=== PATIENT | female | born 2000 | race Caucasian/White ===

== ENCOUNTER 2025-02-09 10:51 | Outpatient (CLI) | payer MEDICAID, SELFPAY ==
--- NOTE | ~2025-02-09 | US_ITS ---
EXAMINATION: US OB follow up DATE: 02/09/2025 11:27 INDICATION: Encounter for supervision of normal during third trimester with estimated size greater than expected for estimated gestational age TECHNIQUE: Real-time ultrasound of the pelvis was performed. The interpreting radiologist was not pre sent for the study. COMPARISON: None. FINDINGS: There is a single living fetus in vertex presentation. The placenta is anterior and not low-lying. F etal heart rate is 135 beats per minute (bpm). The amniotic fluid index is 9.1 cm, which is normal. (5th%-95%: 7.7-24.9 cm at 36 weeks estimated gestational age). The following biometric data were obtained: BPD: 9.2 cm -> 37 weeks 3 days Head circumference: 33.3 cm -> 38 weeks 0 days Abdominal circumference: 33.6 cm -> 37 weeks 3 days Femur length: 7.3 cm -> 37 weeks 3 days These measurements are concordant. Head circumference to abdominal circumference ratio: 0.99 (normal range 0.91-1.05). Estimated weight: 3231 g (+/-) 485 g or 7 lbs. 2 oz. (+/-) 1lb. 1 oz. IMPRESSION: 1. Single living fetus in vertex presentation with heart rate of 135 bpm. 2. Gestational age by ultrasound of 37 weeks 4 day(s) +/- 2 week(s) 4 day(s) with ultrasound estimate d date of delivery (SURINDER) of 02/26/2025. Estimated weight is 84th percentile by Hadlock criteria when 03/07/2025 is used as the SURINDER. Please correlate with clinical information or earlier ultrasounds f or most accurate SURINDER. 3. Normal amniotic fluid index of 9.1 cm. Reviewed, dictated and finalized at location A. IMPRESSION: 1. Single living fetus in vertex presentation with heart rate of 135 bpm. 2. Gestational age by ultrasound of 37 weeks 4 day(s) +/- 2 week(s) 4 day(s) wi th ultrasound estimated date of delivery (SURINDER) of 02/26/2025. Estimated we ight is 84th percentile by Hadlock criteria when 03/07/2025 is used as the SURINDER. P lease correlate with clinical information or earlier ultrasounds for most accur ate SURINDER. 3. Normal amniotic fluid index of 9.1 cm.
== END 2025-02-09 10:52 | disposition home or self-care (01) ==
PROVIDERS: PCP Obstetrics & Gynecology; Visit Provider Obstetrics & Gynecology
DX: Z34.90 Encounter for supervision of normal pregnancy, unspecified, unspecified trimester (principal)
CPT/HCPCS: 76816

== ENCOUNTER 2025-02-26 20:31 | Observation (INO) | payer MEDICAID, SELFPAY ==
--- OUTSIDE RECORDS SUMMARY | 2025-02-26 22:22 | XMS_ITS | Clinical Summary ---
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 Gender Identity Not on file Sexual Orientation Not on file Plan of Treatment Health Maintenance Due Date Last Done Comments Cervical Cancer Screening Pap Smear (Age 21 to 29) Every 3 Years 1999 Cervical Cancer Screening 1999 Annual Physical 11/14/2002 HPV Vaccines (1 - 3-dose series) 11/14/2014 Hepatitis C 11/14/2017 DTaP, Tdap and Td Vaccines (7 - Td or Tdap) 04/23/2023 04/23/2013, 11/24/2003, 11/24/2003, Additional history exists COVID-19 Vaccine ( season) 2024 Hepatitis B Vaccines Completed 12/05/2000, 03/07/2000, 01/11/2000 Meningococcal Vaccine Completed 03/01/2016, 014 Meningococcal B Vaccine Aged Out No l onger eligible based on patient's age to complete this topic Pneumococcal Vaccine: Pediatrics (0 to 5 Years) and At-Risk Patients (6 to 49 Years) Aged Out No longer eligible based on patient's age to complete this topic RSV Immunizations Under 20 Months Aged Out No longer eligible based on patient's age to complete this topic Insurance [facility] Care Teams Track Inspector Relationship Specialty Start Date End Date Fortunato Lowe MD [address] [place] [address] PCP - General INTERNAL MEDICINE 06/25/24
--- OUTSIDE RECORDS SUMMARY | 2025-02-26 22:22 | XMS_ITS | Clinical Summary ---
Author Organization [facility] Address [address] [place] [address] Care Team Providers Care Shear Helper Name Role Phone Fortunato Lowe MD Primary Care Provider [phone] Source Comments [facility],non-owned Affiliates and Associated Physician Practices is amultiple site organization consisting of ambulatory clinics and hospital sitesin [place], [place], [place] and [place]. This disclosure is being madepursuant to the Care Everywhere program and may not contain all information available regarding this patient. Last updated 18.[facility] Active Problems Problem Noted Date Diagnosed Date Recurrent loss, currently Social History Tobacco Use Types Packs/Day Years Used Date Smoking Tobacco: Never Assessed PHQ-2 Answer Date Recorded Patient Health Questionnaire-2 Score 0 08/04/2024 Comments Unknown Sex and Gender Information Value Date Recorded Sex Assigned at Female 06/23/2024 4:24 PM PUBLIC TRANSIT SPECIALIST Legal Sex Female 3:55 PM PUBLIC TRANSIT SPECIALIST Gender Identity Female 06/23/2024 4:24 PM PUBLIC TRANSIT SPECIALIST Sexual Orientation Straight 06/23/2024 4: 28 PM PUBLIC TRANSIT SPECIALIST Plan of Treatment Health Maintenance Due Date Last Done Comments HIV SCREENING 11/14/2014 HPV VACCINE (1 - 3-dose series) 11/14/2014 CHLAMYDIA/GONORRHEA SCREENING 2015 HEPATITIS C SCREENING 11/10/2017 DTAP/TDAP/TD VACCINES (1 - Tdap) 11/14/2018 HEPATITIS B VACCINE (1 of 3 - 19+ 3-dose series) 11/14/2018 PAP SMEAR 11/14/2020 COVID-19 VACCINE ( season) 2024 INFLUENZA VACCINE (#1) 2025 5, 05/20/2014, 04/23/2013, Additional history exists ZOSTER VACCINE (1 of 2) 11/14/2049 DEPRESSION SCREENING Completed 08/11/2024 HIB VACCINE Aged Out No longer eligi ble based on patient's age to complete this topic MENINGOCOCCAL (Group B) VACCINE SHARED DECISION-MAKING Aged Out No longer eligible based on patient's age to complete this topic MENINGOCOCCAL GROUPS A/C/Y/W VACCINE Aged Out No longer eligible based on patient's age to complete this topic PNEUMOCOCCAL VACCINE Aged Out No long er eligible based on patient's age to complete this topic Insurance Care Teams Shear Helper Relationship Specialty Start Date End Date Fortunato Lowe MD [address] [place], [place] [id number] PCP - General Internal Medicine 08/11/24
[2025-02-26 22:41] VITALS: BMI 39.9
--- NOTE | 2025-02-26 22:41 | OBADM ---
This patient, Radha Contreras, admitted to the OB room Labor/Delivery/Recovery 105 for observation. Patient/family oriented to hospital policies and general routines including ID bracelet, bed and alarms, visiting hours, pain management, procedures, bathroom and other care routines, personal items, smoking policy, room service/diet, and visiting hours. Patient/Family are encouraged to report perceived risks to care and to ask questions if they do not understand what they are told or what they should do.
--- NOTE | 2025-02-27 10:54 | PM.OBTRLD ---
OB - Triage/Final Diagnosis Visit Information Comments/Additional reasons for admission: I have assessed the risk for this patient, Radha Contreras, and determined that she would benefit from observation care. Evaluation Vital signs: Vital Signs - 24 hr 02/26/25 22:41 Oxygen Delivery Room Air Final Diagnosis (1) Irregular uterine contractions: Code(s): O47.9 - False labor, unspecified Status: Acute
== END 2025-02-26 22:56 | disposition home or self-care (01) ==
PROVIDERS: Admitting Provider Obstetrics & Gynecology; PCP Internal Medicine; Visit Provider Obstetrics & Gynecology
DX: O47.1 False labor at or after 37 completed weeks of gestation (principal); Z3A.38 38 weeks gestation of pregnancy
CPT/HCPCS: G0378; G0379

== ENCOUNTER 2025-03-01 02:25 | Inpatient (IN) | payer OTHER, SELFPAY ==
[2025-03-01] VITALS (334 sets, daily range): BP systolic 83–142; BP diastolic 44–118; PULSE 25–148; RESP 16–19; TEMP 36.7–37.7; O2SAT 73–100; BMI 39.9
--- OUTSIDE RECORDS SUMMARY | 2025-03-01 02:48 | XMS_ITS | Clinical Summary ---
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
--- OUTSIDE RECORDS SUMMARY | 2025-03-01 02:48 | XMS_ITS | Clinical Summary ---
Author Organization [facility] Address [address] [place] [address] Care Team Providers Care Utilization Review Specialist Name Role Phone Fortunato Lowe MD Primary Care Provider [phone] Source Comments [facility],non-owned Affiliates and Associated Physician Practices is amultiple site organization consisting of ambulatory clinics and hospital sitesin [place], [place], [place] and [place]. This disclosure is being madepursuant to the Care Everywhere program and may not contain all information available regarding this patient. Last updated 18.[facility] Active Problems Problem Noted Date Diagnosed Date Recurrent loss, currently Social History Tobacco Use Types Packs/Day Years Used Date Smoking Tobacco: Never Assessed PHQ-2 Answer Date Recorded Patient Health Questionnaire-2 Score 0 08/04/2024 Comments Unknown Sex and Gender Information Value Date Recorded Sex Assigned at Female 06/23/2024 4:24 PM ACCOUNT CONSULTANT Legal Sex Female 3:55 PM ACCOUNT CONSULTANT Gender Identity Female 06/23/2024 4:24 PM ACCOUNT CONSULTANT Sexual Orientation Straight 06/23/2024 4: 28 PM ACCOUNT CONSULTANT Plan of Treatment Health Maintenance Due Date [...] to complete this topic Insurance Care Teams Utilization Review Specialist Relationship Specialty Start Date End Date Fortunato Lowe MD [address] [place], [place] [phone] PCP - General Internal Medicine 08/11/24
--- NOTE | 2025-03-01 03:02 | LDADM ---
This patient, Radha Contreras, was admitted to Labor/Delivery/Recovery 107 on 03/01/25 at 02:25. Plans for labor, pain management and were discussed with patient. Patient/family oriented to hospital policies and general routines including ID bracelet, bed and alarms, visiting hours, pain management, procedures, bathroom and other care routines, personal items, smoking policy, room service/diet and guest tray routines, infant security routines, and visiting hours. Patient/Family are encouraged to report perceived risks to care and to ask questions if they do not understand what they are told or what they should do. See OBIX for further documentation.
[2025-03-01 03:03] LABS: Hematocrit 37.7 % (37.0-47.0); Hemoglobin 11.9 g/dL (12.0-15.0); Immature Granulocyte Percent A 0.8 % (0-0.5); Lymphocytes Absolute Auto 2.37 K/mm3 (0.9-3.2); Mean Corpuscular HGB Conc 31.6 g/dl (32-36); Mean Corpuscular Hemoglobin 27.2 pg (26-34); Mean Corpuscular Volume 86.1 fl (80-100); Nucleated Red Blood Cells Absolute Auto 0.000 K/mm3 (0.0-0.012); Nucleated Red Blood Cells Perc 0.0 % (0.0-0.2); Platelet Count Result 161 k/mm3 (150-375); Red Blood Count 4.38 M/mm3 (4.2-5.4); White Blood Count 14.6 K/mm3 (4.5-10.0)
--- NOTE | 2025-03-01 03:34 | P.PNAN_ITS ---
Anes - Eval Pre Procedure Procedure: Labor epidural Date/Time: 03/01/25 03:34 Surgeon: man Preop Diagnosis: pain during labor Pre Op Diagnosis: Labor Patient Data Age: 24 Gender: F Height: 1.57 m Weight: 99 kg Last Vital Signs Pulse 94 03/01/25 03:31 BP 125/84 03/01/25 03:31 Allergies Allergy/AdvReac Type Severity Reaction Status Date / Time Penicillins Allergy Mild Unknown Verified 02/23/25 12:00 Home Medications ?Medication ?Instructions ?Recorded ?Confirmed ?Type docosahexaenoic acid 200 mg mg PO 01/27/25 02/23/25 History capsule ( DHA) ferrous sulfate 300 mg (60 mg 300 mg PO DAILY 01/27/25 02/23/25 History iron)/5 mL oral liquid valacyclovir 500 mg tablet 500 mg PO DAILY 02/05/25 02/23/25 History Laboratory Tests 03/01/25 02:58 WBC 14.6 H K/mm3 (4.5-10.0) RBC 4.38 M/mm3 (4.2-5.4) Hgb 11.9 L g/dL (12.0-15.0) Hct 37.7 % (37.0-47.0) MCV 86.1 fl (80-100) MCH 27.2 pg (26-34) MCHC 31.6 L g/dl (32-36) RDW 20.3 H % (11.5-14.5) Plt Count 161 k/mm3 (150-375) MPV 10.9 H fl (7.4-10.4) Immature Gran % (Auto) 0.8 H % (0-0.5) Neut % (Auto) 75.5 H % (45.5-73.1) Lymph % (Auto) 16.3 L % (18.3-44.2) [place] % (Auto) 6.7 % (2.6-8.5) Eos % (Auto) 0.5 % (0-4.4) Baso % (Auto) 0.2 % (0.2-1.2) Lymph # (Auto) 2.37 K/mm3 (0.9-3.2) [place] # (Auto) 1.0 H K/mm3 (0.1-0.6) Eos # (Auto) 0.1 K/mm3 (0-0.3) Baso # (Auto) 0.0 K/mm3 (0.0-0.1) Abs Immat Gran (auto) 0.11 H K/mm3 (0.00-0.031) Absolute Neuts (auto) 11.0 H K/mm3 (1.3-6.7) Absolute Nucleated RBC 0.000 K/mm3 (0.0-0.012) Nucleated RBC % 0.0 % (0.0-0.2) Blood Type Pending Antibody Screen Pending Patient hx anesthesia problems: none Family hx anesthesia problems: none Results Review: All pre-operative results and documents have been reviewed as part of the pre- operative evaluation. [facility] Past Medical History Medical History (Updated 03/01/25 @ 03:36 by Sonia Clay CRNA) Obesity IUP (intrauterine ), incidental Family History Family History Grandparent Breast cancer Social History Social History Smoking status: Former smoker Tobacco type: e-cigarettes/vaping Second hand tobacco smoke exposure: No Alcohol intake: former Substance use: never Do You Feel Safe in your Home?: Yes Lack of Transportation: No Lack of Food: Never True Current Housing: I Have Housing Concerned About Future Housing: No Difficulty Paying Gas/Electric Bills: No Difficulty Paying for Meds: No Currently Unemployed: No Education: High School Diploma/GED Difficulty w/ Childcare or Family Care: No Living arrangements: with family Gender identity (if verbalized by the patient): Female Spiritual care concerns: No Exam Day of Procedure 03/01/25 03:34
[2025-03-01 04:04] LABS: Syphilis IgG/IgM Antibody Non-Reactive (Nonreactive)
[2025-03-01] MEDS: LACTATED RINGERS 1,000 ML 125 ML IV CONT ×3 (07:39→19:50)
--- NOTE | 2025-03-01 07:51 | P.HP_ITS ---
H&P: HPI History of Present Illness Date/Time: 03/01/25 07:51 Chief Complaint: Contractions Narrative: 24 y/o at 39 1/7 weeks gestation by LMP consistent with ultrasound exams at 5 and 10 weeks. She presented with contractions. Labor was diagnosed. She is now comfortable with epidural. GBS neg. Rubella equivocal. Former smoker - has quit! NIPT low risk, carrier screen negative. GCT normal at 112. Review of Systems Review of Systems: All systems reviewed & are unremarkable except as noted in HPI and below [facility] Past Medical History Medical History Obesity IUP (intrauterine ), incidental Family History Family History Grandparent Breast cancer Social History Social History Smoking status: Former smoker Tobacco type: e-cigarettes/vaping Second hand tobacco smoke exposure: No Alcohol intake: former Substance use: never Do You Feel Safe in your Home?: Yes Lack of Transportation: No Lack of Food: Never True Current Housing: I Have Housing Concerned About Future Housing: No Difficulty Paying Gas/Electric Bills: No Difficulty Paying for Meds: No Currently Unemployed: No Education: High School Diploma/GED Difficulty w/ Childcare or Family Care: No Living arrangements: with family Gender identity (if verbalized by the patient): Female Spiritual care concerns: No Meds Home Medications and Allergies Home Medications ?Medication ?Instructions ?Recorded ?Confirmed ?Type docosahexaenoic acid 200 mg mg PO 01/27/25 02/23/25 History capsule ( DHA) ferrous sulfate 300 mg (60 mg 300 mg PO DAILY 01/27/25 02/23/25 History iron)/5 mL oral liquid valacyclovir 500 mg tablet 500 mg PO DAILY 02/05/25 02/23/25 History Allergies Allergy/AdvReac Type Severity Reaction Status Date / Time Penicillins Allergy Mild Unknown Verified 02/23/25 12:00 Vital Signs Vital Signs - 24 hr 03/01/25 01:00 03/01/25 03:31 03/01/25 03:41 Temperature 98.7 F Pulse Rate 94 Blood Pressure 125/84 Pulse Oximetry 100 03/01/25 03:42 03/01/25 03:43 03/01/25 03:46 Temperature Pulse Rate 126 H 121 H 122 H Blood Pressure 133/93 H 122/86 133/79 Pulse Oximetry 100 03/01/25 03:48 03/01/25 03:51 03/01/25 03:53 Temperature Pulse Rate 110 H 104 H 122 H Blood Pressure 142/75 H 133/70 92/66 L Pulse Oximetry 100 03/01/25 03:55 03/01/25 03:56 03/01/25 03:58 Temperature Pulse Rate 95 103 H Blood Pressure 123/79 123/71 Pulse Oximetry 100 03/01/25 04:01 03/01/25 04:03 03/01/25 04:06 Temperature Pulse Rate 104 H 97 97 Blood Pressure 119/70 125/75 130/72 Pulse Oximetry 100 100 03/01/25 04:08 03/01/25 04:11 03/01/25 04:13 Temperature Pulse Rate 107 H 102 H 100 Blood Pressure 132/77 132/73 135/71 Pulse Oximetry 100 03/01/25 04:16 03/01/25 04:18 03/01/25 04:21 Temperature Pulse Rate 110 H 106 H Blood Pressure 121/84 138/87 Pulse Oximetry 100 100 03/01/25 04:22 03/01/25 04:25 03/01/25 04:30 Temperature Pulse Rate Blood Pressure Pulse Oximetry 100 100 100 03/01/25 04:31 03/01/25 04:35 03/01/25 04:40 Temperature Pulse Rate 102 H Blood Pressure 123/77 Pulse Oximetry 100 100 03/01/25 04:44 03/01/25 04:46 03/01/25 04:49 Temperature Pulse Rate 97 Blood Pressure 107/57 L Pulse Oximetry 100 100 03/01/25 04:50 03/01/25 04:51 03/01/25 04:51 Temperature Pulse Rate Blood Pressure Pulse Oximetry 99 100 97 03/01/25 04:56 03/01/25 05:01 03/01/25 05:06 Temperature Pulse Rate 100 Blood Pressure 107/62 Pulse Oximetry 100 100 100 03/01/25 05:11 03/01/25 05:16 03/01/25 05:21 Temperature Pulse Rate 96 Blood Pressure 104/67 Pulse Oximetry 99 100 100 03/01/25 05:26 03/01/25 05:31 03/01/25 05:36 Temperature Pulse Rate 94 Blood Pressure 106/68 Pulse Oximetry 100 100 100 03/01/25 05:41 03/01/25 05:42 03/01/25 05:43 Temperature Pulse Rate Blood Pressure Pulse Oximetry 99 100 100 03/01/25 05:43 03/01/25 05:43 03/01/25 05:43 Temperature Pulse Rate Blood Pressure Pulse Oximetry 99 99 100 03/01/25 05:44 03/01/25 05:46 03/01/25 05:49 Temperature Pulse Rate 97 Blood Pressure 124/77 Pulse Oximetry 98 100 03/01/25 05:50 03/01/25 05:54 03/01/25 05:59 Temperature 99.1 F Pulse Rate Blood Pressure Pulse Oximetry 99 99 03/01/25 06:01 03/01/25 06:04 03/01/25 06:09 Temperature Pulse Rate 79 Blood Pressure 115/64 Pulse Oximetry 98 100 03/01/25 06:14 03/01/25 06:14 03/01/25 06:16 Temperature Pulse Rate 88 Blood Pressure 117/71 Pulse Oximetry 100 100 03/01/25 06:19 03/01/25 06:24 03/01/25 06:29 Temperature Pulse Rate Blood Pressure Pulse Oximetry 100 100 100 03/01/25 06:31 03/01/25 06:34 03/01/25 06:39 Temperature Pulse Rate 99 Blood Pressure 117/74 Pulse Oximetry 100 100 03/01/25 06:44 03/01/25 06:46 03/01/25 06:49 Temperature Pulse Rate 103 H Blood Pressure 113/76 Pulse Oximetry 100 100 03/01/25 06:54 03/01/25 06:59 03/01/25 07:01 Temperature Pulse Rate 86 Blood Pressure 118/72 Pulse Oximetry 100 99 03/01/25 07:04 03/01/25 07:09 03/01/25 07:14 Temperature Pulse Rate Blood Pressure Pulse Oximetry 100 100 100 03/01/25 07:16 03/01/25 07:19 03/01/25 07:24 Temperature Pulse Rate 85 Blood Pressure 113/63 Pulse Oximetry 99 99 03/01/25 07:29 03/01/25 07:31 03/01/25 07:34 Temperature Pulse Rate 100 Blood Pressure 134/67 Pulse Oximetry 99 100 03/01/25 07:39 03/01/25 07:44 03/01/25 07:46 Temperature Pulse Rate 100 Blood Pressure 124/77 Pulse Oximetry 98 98 03/01/25 07:49 Temperature Pulse Rate Blood Pressure Pulse Oximetry 98 Exam Const: Orientation/consciousness: patient oriented x3 Other: Well-developed, well-nourished female in no acute distress. Neck: Thyroid: thyroid normal Lymphatic: no lymphadenopathy noted (in neck, axilla or inguinal nodes) Resp: Effort & Inspection: normal respiratory effort Auscultation: clear to auscultation bilaterally Cardio: Rate: regular rate Rhythm: regular rhythm Heart sounds: S1 normal heart sound present and S2 normal heart sound present GI: Other: ABD: Soft, nontender, nondistended, gravid. NST reactive. TOCO: contractions every 4-5 min. No guarding or rebound tenderness. No hepatosplenomegaly. : General: Yes no CVA tenderness Other: Cervix 6/50/-2. AROM with clear fluid. IUPC placed. Vertex. Back/Spine/Pelvis: Back: no CVA tenderness Skin: General skin exam: normal color and no rashes or lesions noted Neuro: General: patient oriented x3 Extrem: Other: Extremities: nontender with no edema Psych: Mental Status: mental status grossly normal Affect: normal affect H&P: Results Labs Labs: Short CBC 03/01/25 Range/Units 02:58 WBC 14.6 H (4.5-10.0) K/mm3 Hgb 11.9 L (12.0-15.0) g/dL Hct 37.7 (37.0-47.0) % Plt Count 161 (150-375) k/mm3 Assessment and Plan Assessment and plan (1) Active labor at term: Status: Acute Assessment and Plan: A: IUP at 39 1/7 weeks, in labor. P: Anticipate . Augment labor as needed.
[2025-03-01] MEDS: ACETAMINOPHEN 500 MG TABLET 1000 MG PO (19:49)
[2025-03-01] MEDS: FAMOTIDINE 20 MG/2 ML VIAL IV PUSH (19:49)
[2025-03-01] MEDS: ONDANSETRON INJ 4 MG/2 ML VIAL IV PUSH (19:50)
[2025-03-01] MEDS: AZITHROMYCIN IV 500 MG in SODIUM CHLORIDE 0.9% IV 250 ML IVPB (19:51)
[2025-03-01] MEDS: ceFAZolin 2 GM in SODIUM CHLORIDE 0.9% IV 50 ML 100 ML IVPB (19:51)
--- NOTE | 2025-03-01 21:41 | PM.OBPNLAB ---
Pain Control Date/time seen: 03/01/25 21:41 Comfortable with epidural. AVSS (Tm 100F) NST good variability TOCO: contractions every 2-3 min ABD soft, nontender, gravid EXT nontender Cervix 8100/-1. A: Arrest of dilation in labor. P: Offered primary . Reviewed risks, benefits, alternatives in detail. She understands risks of surgery to include risks of anesthesia, risks of pain, infection, bleeding, blood products, thromboembolic phenomena and damage to adjacent structures such as bowel, bladder, ureters, blood vessels and nerves. She understands all these risks and elects to proceed with surgery.
--- NOTE | 2025-03-01 21:46 | WPDHPUPDATE1 ---
History and Physical Update Update Date/Time: 03/01/25 21:46 History and Physical has been reviewed, including an updated exam of the patient. There are NO changes in the patient's condition. Risks, benefits, and alternatives have been discussed and questions answered. Patient agrees to proceed with procedure.
--- NOTE | 2025-03-01 22:56 | P.PCNOB_ITS ---
OB - Delivery Note Procedure Delivery date: 03/01/25 Pre-op diagnosis: Arrest of Dilation Post-op Diagnosis: Same Induction method: None Delivery augmentation: Rupture of Membranes and Pitocin Delivery monitor: External FHT, External Uterine and Internal Uterine Procedure Performed: Primary Surgeon: Kvng العراقي MD Anesthesia type: Epidural Description of Procedure/Findings: Findings: Normal-appearing uterus, tubes and ovaries. Techniques: The patient was taken to the operating room where she was prepared and draped in the usual sterile fashion in dorsal supine position with a leftward tilt. She received cefazolin and azithromycin preoperatively. Epidural anesthesia was found to be adequate. A Pfannenstiel skin incision was made and carried through to the underlying layer of the fascia. The fascia was incised in the midline and the incision was extended laterally. The fascia was dissected free of the underlying rectus muscles. The rectus muscles were in the midline. The peritoneum was identified, tented up and entered sharply. The peritoneal incision was extended superiorly and inferiorly with good visualization of the bladder. The bladder blade was placed. The vesicouterine peritoneum was identified, tented up and entered sharply. The incision was extended laterally and the bladder flap was developed. The bladder blade was replaced. The uterus was then incised sharply in a transverse fashion along the lower uterine segment. The incision was extended laterally. The infant's head was delivered atraumatically to the sterile field, followed by the body. The nose and mouth were bulb suctioned. After a delay, the cord was clamped and cut. The infant was handed off the field. Cord blood was collected. The placenta was removed manually and was passed off the field. The uterus was exteriorized and cleared of all clots and debris. The uterine incision was reapproximated using 0 Monocryl in a running, locked fashion. A second, imbricating layer of the same suture was run. Excellent hemostasis resulted as did excellent reapproximation of the normal anatomy. The uterus was returned the abdomen. The pelvis was irrigated copiously with warmed normal saline. Rigorous hemostasis was assured. The fascial layer was reapproximated using 0 Vicryl in a running fashion. The skin was closed with a running, subcuticular stitch of 4 0 Vicryl. Dermaflex was applied externally. Sponge, lap, needle and instrument counts were correct. The patient was taken to the recovery room in stable condition. The went to the nursery in stable condition. I was present and scrubbed the entire procedure. Specimen: Yes (Cord blood) Estimated Blood Loss: 785 Drains: Yes (Contreras) Packing: No Pathology: Yes (cord blood) Complications: None Condition: Stable Disposition: PACU [place] Baby Date of : 03/01/25 Time of : 22:16 Gestational Age by Date: 39 gender: Male Weight (pounds): 9 Weight (ounces): 13 presentation: vertex Placenta delivery description: Manual Removal and Normal Configuration Cord Vessel Description: 3 Vessels and Delayed Cord Clamping score one minute: 8 score five minutes: 9
--- NOTE | 2025-03-01 22:58 | P.DS_ITS ---
DS: Admitting Diagnosis Discharge Date 03/03/25 Admitting Diagnosis IUP at 39 weeks Labor Rubella equivocal DS: Discharge Diagnosis Discharge Diagnosis (1) delivery delivered: Code(s): O82 - Encounter for delivery without indication Status: Acute (2) Rubella nonimmune status, delivered, current hospitalization: Code(s): O99.892 - Other specified diseases and conditions complicating childbirth; Z28.39 - Other underimmunization status Status: Acute OB - DS: Summary OB Procedures : NST OB Procedures Intrapartum: low cervical, transverse OB Procedures: : None Peripartum Data Procedures: Procedures Operation Date: 03/01/25 20:15 <No data on this case meets the specified criteria> Time Spent with Patient Time attestation: Total time spent providing and/or coordinating discharge services: DS: Data Data Completed and Pending Labs on day of discharge: Labs from last 24 hours 03/01/25 02:58 WBC 14.6 H RBC 4.38 Hgb 11.9 L Hct 37.7 MCV 86.1 MCH 27.2 MCHC 31.6 L RDW 20.3 H Plt Count 161 MPV 10.9 H Immature Gran % (Auto) 0.8 H Neut % (Auto) 75.5 H Lymph % (Auto) 16.3 L [place] % (Auto) 6.7 Eos % (Auto) 0.5 Baso % (Auto) 0.2 Lymph # (Auto) 2.37 [place] # (Auto) 1.0 H Eos # (Auto) 0.1 Baso # (Auto) 0.0 Abs Immat Gran (auto) 0.11 H Absolute Neuts (auto) 11.0 H Absolute Nucleated RBC 0.000 Nucleated RBC % 0.0 Syphilis IgG/IgM Ab Non-reactive Blood Type O Positive Antibody Screen Negative Discharge Plan Discharge Attending physician on discharge: Kvng العراقي Discharging Clinician: Kvng العراقي Patient Disposition: Home Activity: may shower, may drive after 2 weeks and pelvic rest Diet: regular Wound Care Instructions: incision open to air Discharge Instructions: Call or return if temperature above 100.4? F, increased abdominal pain, increased vaginal bleeding or any new problems. Patient Language: E[place] Stand Alone Forms: General Discharge Information Follow-up/Referrals: Kvng العراقي MD [Physician] - 4 Weeks Discharge Medications: New ibuprofen 600 mg tablet 600 mg PO Q6H PRN (Reason: cramps) Qty: 30 0RF oxycodone-acetaminophen [Percocet] 5-325 mg tablet 1 - 2 tablet PO Q6H PRN (Reason: pain) Qty: 30 0RF ferrous sulfate 325 mg (65 mg iron) tablet 325 mg PO DAILY Qty: 30 0RF Continued DHA 200 mg capsule PO ferrous sulfate 300 mg (60 mg iron)/5 mL liquid 300 mg PO DAILY valacyclovir 500 mg tablet 500 mg PO DAILY Date of admission: 03/01/25 02:25 Primary Care Provider: Fortunato Lowe Admitting Provider: Kvng العراقي Attending physician on admission: Kvng العراقي Condition: Stable
[2025-03-01] MEDS: OXYTOCIN 30 UNITS/NS 500 ML 30 UNITS/500 ML BAG 125 UNITS IV CONT (23:37)
[2025-03-01] MEDS: MORPHINE SULFATE INJ (*CRX) 10 MG/ML AMP 3 MG IV PUSH (23:46)
[2025-03-02] VITALS (24 sets, daily range): BP systolic 94–119; BP diastolic 49–77; PULSE 76–146; RESP 16–20; TEMP 36–37.7; O2SAT 97–100
[2025-03-02] MEDS: MORPHINE SULFATE INJ (*CRX) 10 MG/ML AMP 3 MG IV PUSH (01:04)
--- NOTE | 2025-03-02 02:45 | OBPPTRN ---
Patient transferred to post room #291 via bed. Support person present. Oriented to unit, room, information board, rooming in, admission packet and security measures. Patient verbalizes understanding.
[2025-03-02] MEDS: KETOROLAC 15 MG/ML VIAL (*BKC) IV PUSH ×3 (03:39→15:11)
[2025-03-02] MEDS: ACETAMINOPHEN 500 MG TABLET 1000 MG PO ×4 (03:39→21:18)
[2025-03-02] MEDS: LIDOCAINE 5% PATCH 1 PATCH TRANSDERM (03:41)
[2025-03-02] MEDS: DEXTROSE 5%/0.45% SOD CHL 1,000 ML 125 ML IV CONT (03:42)
[2025-03-02 05:50] LABS: Hematocrit 28.2 % (37.0-47.0); Hemoglobin 8.8 g/dL (12.0-15.0); Immature Granulocyte Percent A 0.6 % (0-0.5); Lymphocytes Absolute Auto 1.11 K/mm3 (0.9-3.2); Mean Corpuscular HGB Conc 31.2 g/dl (32-36); Mean Corpuscular Hemoglobin 27.4 pg (26-34); Mean Corpuscular Volume 87.9 fl (80-100); Nucleated Red Blood Cells Absolute Auto 0.000 K/mm3 (0.0-0.012); Nucleated Red Blood Cells Perc 0.0 % (0.0-0.2); Platelet Count Result 133 k/mm3 (150-375); Red Blood Count 3.21 M/mm3 (4.2-5.4); White Blood Count 20.5 K/mm3 (4.5-10.0)
[2025-03-02] MEDS: ONDANSETRON INJ 4 MG/2 ML VIAL IV PUSH (08:12)
--- NOTE | 2025-03-02 08:15 | PC.NURSE ---
Introductions were made, then consulted with patient to assess needs related to . Baby breastfed once and then has bottle fed since. It is time for baby to eat now but mom feels nauseous and desires to have dad bottle feed with formula. Patient states that she will call for assistance later when she is ready. Resources provided for inpatient and outpatient services with the feeding sheet, mom/baby guide and name written on the communication board. Mother voiced understanding of information and will call if there is a request for assistance. Reported to the Primary RN.?
--- NOTE | 2025-03-02 08:22 | WPDANLDPN2 ---
Anes-Prog Note L&D Date/Time: 03/02/25 08:22 Comfortable throughout: section Neuraxial method: epidural Epidural/Spinal procedure site: clean & non-tender Neuro status: Neuro function grossly intact. catheter still intact Cardiovascular status: normal Respiratory status: normal Airway patency: baseline Mental status: baseline Post-Op hydration status: normal Vital Signs: Last Vital Signs Temp 36.1 C L 03/02/25 05:15 Pulse 89 03/02/25 05:15 Resp 16 03/02/25 05:15 BP 110/70 03/02/25 05:15 Pulse Ox 97 03/02/25 05:15 O2 Del Method Room Air 03/02/25 00:05 Pain score (VAS): 4 I/O: Intake & Output 03/01/25 03/02/25 03/02/25 23:59 07:59 15:59 Intake Total 1999 Output Total 935 Balance 1999 - Post-procedural complaints: nausea Patient feedback: Patient satisfied with anesthetic care.
--- NOTE | 2025-03-02 08:23 | WPDANLDNPN2 ---
Anes-Prog Note L&D-Neuraxial Date/Time: 03/02/25 08:23 Neuraxial medications: epidural PF morphine Opiod-related complaints: nausea mild, no treatment Patient feedback: Patient satisfied with post-operative pain management.
[2025-03-02] MEDS: DOCUSATE SODIUM 100 MG CAPSULE PO ×2 (09:09→17:43)
[2025-03-02] MEDS: SIMETHICONE 80 MG TAB.CHEW PO ×3 (09:09→17:42)
[2025-03-02] MEDS: MULTIVIT/MIN/PREN/FOL AC/IRON TABLET 1 TAB PO (09:10)
--- NOTE | 2025-03-02 11:08 | PM.OBPNVD ---
OB - PN: Subj Subjective Date/time seen: 03/02/25 0815 Interval history: POD 1 Doing well Pain is well controlled. Planning to breastfeed. Hgb 8.8, asymptomatic Patient comments: pain well controlled and tolerating diet OB - PN: Obj Data Labs 03/02/25 05:24 Labs: Laboratory Results - last 24 hr 03/02/25 05:24 WBC 20.5 H RBC 3.21 L Hgb 8.8 L D Hct 28.2 L MCV 87.9 MCH 27.4 MCHC 31.2 L RDW 19.9 H Plt Count 133 L MPV 11.0 H Immature Gran % (Auto) 0.6 H Neut % (Auto) 88.8 H Lymph % (Auto) 5.4 L [place] % (Auto) 4.9 Eos % (Auto) 0.0 Baso % (Auto) 0.3 Lymph # (Auto) 1.11 [place] # (Auto) 1.0 H Eos # (Auto) 0.0 Baso # (Auto) 0.1 Abs Immat Gran (auto) 0.13 H Absolute Neuts (auto) 18.2 H Absolute Nucleated RBC 0.000 Nucleated RBC % 0.0 OB - PN A/P Assessment and Plan (1) delivery delivered: Code(s): O82 - Encounter for delivery without indication Status: Acute Assessment and Plan: POD 1. Continue care. Continue breast feeding. PO iron for anemia. Plan Plan: routine care Time Spent With Patient Time: Total time spent is greater than 50% in coordination of care (as documented) at patient's floor/unit and/or counseling patient: Review of Systems Constitutional: Constitutional: Denies chills and Denies fever(s) Respiratory: Respiratory: Denies dyspnea Gastrointestinal: Gastrointestinal: Reports abdominal pain (incisional) Genitourinary: Comments: has catheter Integumentary/Breasts: Skin/Breast: Denies breast pain Exam Const: General: cooperative and healthy appearing Orientation/consciousness: patient oriented x3 Resp: Effort & Inspection: normal respiratory effort and able to speak in complete sentences Cardio: Rate: regular rate Rhythm: regular rhythm GI: Inspection: normal to inspection GI Palp: Yes Soft to palpation Auscultation: normal bowel sounds Other: incision dressing clean, dry, intact : External Female Exam: No erythema, external swelling, No lesion and No laceration Extrem: General: no calf tenderness Right lower extremity: edema Details: 1+ Left lower extremity: edema Details: 1+ Psych: Appearance: grossly normal Affect: normal affect
[2025-03-02] MEDS: IBUPROFEN 600 MG TABLET PO (21:18)
[2025-03-03] MEDS: LIDOCAINE 5% PATCH 1 PATCH TRANSDERM (03:01)
[2025-03-03] MEDS: ACETAMINOPHEN 500 MG TABLET 1000 MG PO ×2 (03:01→09:41)
[2025-03-03] MEDS: IBUPROFEN 600 MG TABLET PO ×2 (03:01→09:41)
[2025-03-03 08:30] VITALS: BP 110/65; PULSE 113; RESP 16; TEMP 36.2; O2SAT 98
[2025-03-03] MEDS: SIMETHICONE 80 MG TAB.CHEW PO ×2 (08:30→12:24)
[2025-03-03] MEDS: MULTIVIT/MIN/PREN/FOL AC/IRON TABLET 1 TAB PO (08:31)
[2025-03-03] MEDS: DOCUSATE SODIUM 100 MG CAPSULE PO (08:31)
--- NOTE | 2025-03-03 08:47 | P.PNOB_ITS ---
OB - PN: Subj Subjective Date/time seen: 03/03/25 08:47 Narrative: Pain OK. Tolerating diet. Would like circumcision for son. Would like to go home. OB - PN: Obj Data Labs 03/02/25 05:24 OB - PN A/P Plan day: 2 Comments: A: POD#2, doing well. P: Reviewed circ. Home to f/u 4 weeks. Exam 2 Narrative: AVSS ABD soft, nontender, fundus firm. Incision c/d/i. EXT nontender
--- NOTE | 2025-03-03 11:00 | PC.NURSE ---
Consulted with mother concerning needs and she shared that she is attempting at breast sometimes. She feels that baby does not like the breast and she doesn't want to force him. She is bottle feeding regularly. She was offered a breast pump yesterday but declined use. Mother is feeding appropriately for growth of and understands stimulating infant to eat if needed. has had appropriate feedings in the last 24 hours meets the outcomes for weight, output, blood sugar and jaundice at this time. Reinforced understanding of milk production, transition of milk, community resources ([facility] referral faxed to [facility]), Services at [place], and when to call a provider using the resource of the feeding sheet along with the mom and baby guide. Mother voiced understanding of the information shared, is confident to continue effectively feeding her at home, when to call for assistance, denies any additional assistance or education at this time. Reported to the Primary RN.
[2025-03-03] MEDS: MEASLES,MUMPS,RUBELLA VACCINE 0.5 ML VIAL SUB-Q (12:21)
[2025-03-03] MEDS: PETROLATUM OINTMENT 5 GM PACKET 2 APPLIC (12:24)
[2025-03-03] MEDS: PETROLATUM OINTMENT 5 GM PACKET 1 APPLIC (12:24)
--- NOTE | 2025-03-03 12:27 | PC.NURSE ---
Patient instructed to watch the discharge video Mother & Baby Care, The First Two Weeks. Patient was given the opportunity and encouraged to ask questions. Patient verbalized understanding of information shared and has been given the mother/baby guide for home reference.
[2025-03-05 09:48] VITALS: BP 118/80; PULSE 87; RESP 18; TEMP 36.4; O2SAT 100
== END 2025-03-03 13:23 | disposition home or self-care (01) | DRG 540 ==
LOC: ANHLDR 23:00 → ANHOB2 03-02 02:02
PROVIDERS: Admitting Provider Obstetrics & Gynecology; PCP Internal Medicine; Visit Provider Obstetrics & Gynecology
PROC: 10D00Z1 Extraction of Products of Conception, Low, Open Approach (ICD-10-PCS; CPT 59514; principal; 2025-03-01 20:15)
DX: O62.0 Primary inadequate contractions (principal); O99.214 Obesity complicating childbirth; Z3A.39 39 weeks gestation of pregnancy; Z37.0 Single live birth
CPT/HCPCS: 36415; 85025; 86593; 86850; 86900; 86901; 90710; J0690; A9270; J0456; J0616; J1885; J2004; J2175; J2270; J2274; J2371; J2405; J2590; J2795; J7050; J7120